=== PATIENT | male | born 1975 | race Two or more races ===

== ENCOUNTER → 2017-01-27 | Outpatient (CLI) | payer BC ==
--- NOTE | 2017-01-27 20:41 | CONS ---
DATE OF CONSULTATION: DATE: CONSULTATION/NEW PATIENT EVALUATION HISTORY OF PRESENT ILLNESS/SLEEP-WAKE EVALUATION: 41-year-old gentleman who has been evaluated in the sleep center for possible obstructive sleep apnea/hypopnea syndrome and excessive daytime sleepiness. SLEEP SCHEDULE: Patient's usual sleep schedule from 9:00 p.m. to 3:00 a.m. on working days and from around 11:00 p.m. to 9 or 11 a.m. on weekends. FALLING ASLEEP: Usually no problems with falling asleep. He has a TV bedroom. DURING SLEEP: Sleeps on the side position. According to his , the patient has loud snoring and witnessed episodes of stopped breathing during sleep. Positive history of restless legs. Patient wakes up from sleep at least two times with at least one episode of nocturia. No history of hypnagogic hallucinations, sleep paralysis or cataplexy. DURING THE DAY/WAKE STATE: Patient feels sleepy wakes up tired, has problems with concentration and irritability, anxiety. [place] Sleepiness Scale significantly increased to 15. No history of dreams during naps. PAST MEDICAL HISTORY: Positive for acid reflux, back problem. PAST SURGICAL HISTORY: Left knee surgery. MEDICATIONS: Omeprazole. SOCIAL HISTORY: Negative for smoking. Alcohol consumption very rarely. FAMILY HISTORY: Heart problems, thyroid problems, acid reflux. REVIEW OF SYSTEMS: Awakenings from sleep, excessive daytime sleepiness. No fevers. No double vision. No recent chest pain. No shortness of breath. No abdominal pain. No bleeding episodes. No blood in urine. No seizure episodes. PHYSICAL EXAMINATION: GENERAL: A gentleman without distress. VITAL SIGNS: BP 119/79, HR 68, RR 16. Height 5 feet 9-1/2, weight 256. BMI 37.2. Neck 17-1/2 inches in circumference. Temperature 97.1. Oxygen saturation at room air 98%. HEENT: PERRLA, EOMI evaluation of oropharynx showed retrognathia 7 mm, moderately low to normal position of soft palate. NOSE: Restriction of nasal breathing, more on the left side. Possible nasal septum deviation. NECK: Supple. No JVD. Thyroid is not palpable. LUNGS: Clear to percussion and to auscultation. Good air exchange. No wheezing or rhonchi. HEART: S1, S2 regular. No murmurs, gallops or rubs. ABDOMEN: Obese. Soft and nontender. Bowel sounds are present. No organomegaly appreciated. EXTREMITIES: No clubbing or cyanosis. GOVERNMENT SERVICES PROFESSIONAL: Awake, alert, and oriented x3. Cranial nerves 2 to 7 intact. There is no fasciculation or atrophy noted. No focal deficits observed. IMPRESSION: 1. Snoring, witnessed episodes of stopped breathing during sleep, retrognathia, restriction of nasal breathing, sleepiness, obstructive sleep apnea-hypopnea syndrome. 2. [place] Sleepiness Scale significantly increased to 15, dictates necessity to include hypersomnia in differential diagnosis. 3. Obesity. 4. Acid reflux. 5. Back problem. 6. Status post left knee surgery. PLAN: 1. Home sleep apnea test for evaluation of patient's breathing during sleep. 2. CPAP/BiPAP titration if sleep study confirms obstructive sleep apnea-hypopnea syndrome. 3. Preferable position during sleep on the side. 4. No driving if patient feels any sleepiness. Patient is aware of civil and criminal liability for unsafe driving. 5. I will see patient for follow-up visit to explain results of the testing and following plan. Sincerely, Francisco Scott MD, PhD, FAASM. Diplomat of [place] [employer], Sleep Medicine Board by [place] [employer] Divisional Storekeeper of [facility] [place]
== END | disposition home or self-care (01) ==
LOC: SLEEP 15:06
PROVIDERS: ATTEND Internal Medicine
DX: G47.33 Obstructive sleep apnea (adult) (pediatric) (principal); E66.9 Obesity, unspecified; K21.9 Gastro-esophageal reflux disease without esophagitis; Z96.652 Presence of left artificial knee joint
CPT/HCPCS: 99211

== ENCOUNTER → 2017-05-19 | Outpatient (CLI) | payer BC ==
--- NOTE | 2017-05-19 17:22 | PN ---
PROGRESS NOTE 41-year-old gentleman who has been followed in Sleep Center for treatment of obstructive sleep apnea-hypopnea syndrome. Recently patient had a home sleep apnea test and subsequent CPAP titration and I discussed results of sleep studies with patient in details. He recently was started on treatment with CPAP and is he able to use CPAP at night without significant problem remains. He mentioned mild leak from a full-face mask. Otherwise, he is using his CPAP and feels better during the night and during the day. I checked his CPAP unit. Usage is 30 out of 30 nights for more than 4 hours, average 6.7 hours. Pressure is 8 cm of water. Leak is 8 L/minute which is acceptable. Apnea- hypopnea index reading for the last month is 1.3, which is normal range. MEDICATIONS: Vitamin D3 capsule. PHYSICAL EXAM: Patient in no distress. BP 113/67, HR 76, RR 16, weight 263, temp 98.3, oxygen saturation at room air 97%. HEENT: PERRLA, EOMI. Evaluation of oropharynx showed extremely low position of soft palate. NECK: Supple. No JVD. Thyroid is not palpable. LUNGS: Clear to percussion and to auscultation. Good air exchange. No wheezing or rhonchi. HEART: S1, S2 regular. No murmurs, gallops or rubs. ABDOMEN: Obese. Soft and nontender. Bowel sounds are present. No organomegaly appreciated. EXTREMITIES: No cyanosis or clubbing. CLINICAL TRANSFORMATION SPECIALIST: Awake, alert and oriented x3. Cranial nerves II through VII intact. There is no fasciculation or atrophy noted. No focal deficits observed. IMPRESSION: 1. Obstructive sleep apnea-hypopnea syndrome on control with CPAP at 8 cm of water. Patient demonstrated 100% compliance with treatment, benefitting from treatment. 2. Obesity. 3. Acid reflux. 4. Some periodic limb movements during titration. 5. Back problems. 6. Status post left knee surgery. PLAN: 1. Continue treatment with CPAP every night for the whole night. 2. Losing weight. 3. Sleep hygiene with regular time in bed for at least 8 hours. 4. No driving if feeling sleepiness. 5. Clinically, patient does not have any problems with his leg movements at night, so pharmacotherapy at the present time is most probably not necessary for the leg movements. 6. Followup visit in 1 year or earlier if patient has any problems with the previous sleep. Thank you very much for allowing me to participate in management of your patient. Sincerely, Francisco Scott MD, PhD, FAASM Diplomat of [place] [employer], Sleep Medicine Board by [place] [employer] [place] [employer] Condominium Property Manager of [facility] [place] MMALMA / ANGEL: [id number] /
== END | disposition home or self-care (01) ==
LOC: SLEEP 15:00
PROVIDERS: ATTEND Internal Medicine
DX: G47.33 Obstructive sleep apnea (adult) (pediatric) (principal); E66.9 Obesity, unspecified; K21.9 Gastro-esophageal reflux disease without esophagitis; G47.61 Periodic limb movement disorder; Z96.652 Presence of left artificial knee joint

== ENCOUNTER 2020-07-10 06:09 | Emergency (ER) | payer BC ==
[2020-07-10 06:16] VITALS: TEMP 98.2
[2020-07-10] MEDS ORDERED: SODIUM CHLORIDE 0.9% 1,000 ML IV ONE ×2 (06:49→08:26)
[2020-07-10] MEDS ORDERED: SODIUM CHLORIDE 0.9% 1,000 ML IV SCH (07:00)
--- NOTE | 2020-07-10 07:16 | ED ---
Nausea/Vomiting/Diarrhea HPI - General Chief complaint: Nausea/Vomiting/Diarrhea Stated complaint: congestion,abd pain Time Seen by Provider: 07/10/20 06:17 Source: patient, family Mode of arrival: ambulatory Limitations: no limitations - History of Present Illness Initial comments: 44-year-old male who denies any PMH when asked presenting today for chief complaint of worsening left lower quadrant pain. Patient states that he has not been ill to eat much or had a bowel movement since Tuesday. Patient states she has had left lower quadrant pain he states he saw his primary care provider this week and was prescribed ciprofloxacin and Flagyl for suspected diverticulitis. Patient denies any bloody stools diarrhea. endorses nausea/vomiting. Patient denies upper abdominal pain chest pain shortness of breath he denies fevers or upper respiratory symptoms. Upon arrival patient appears nontoxic in no acute distress. - Related Data Home Medications Medication Instructions Recorded Confirmed Ciprofloxacin HCl [Cipro] 500 mg PO BID 07/10/20 07/10/20 Ondansetron Odt [Zofran Odt] 8 mg PO BID PRN 07/10/20 07/10/20 metroNIDAZOLE [Flagyl] 500 mg PO TID 07/10/20 07/10/20 Previous Rx's Medication Instructions Recorded Ondansetron Odt [Zofran Odt] 4 mg PO Q8HR PRN 3 Days #9 tab 07/10/20 Allergies Allergy/AdvReac Type Severity Reaction Status Date / Time No Known Allergies Allergy Verified 07/10/20 09:09 Review of Systems ROS Statement: Those systems with pertinent positive or pertinent negative responses have been documented in the HPI. ROS Other: All systems not noted in ROS Statement are negative. Past Medical History Past Medical History: No Reported History History of Any Multi-Drug Resistant Organisms: None Reported Past Surgical History: Appendectomy, Orthopedic Surgery Past Psychological History: No Psychological Hx Reported Smoking Status: Never smoker Past Alcohol Use History: Occasional Past Drug Use History: None Reported General Exam - General Exam Comments Initial Comments: General: The patient is awake and alert, in no distress Eye: +3 mm pupils are equal, round and reactive to light, extra-ocular movements are intact. No nystagmus. There is normal conjunctiva bilaterally. No signs of icterus. Ears, nose, mouth and throat: There are moist mucous membranes and no oral lesions. Neck: The neck is supple, there is no tenderness or JVD. Cardiovascular: There is a regular rate and rhythm. No murmur, rub or gallop is appreciated. Respiratory: Lungs are clear to auscultation, respirations are non-labored, breath sounds are equal. No wheezes, stridor, rales, or rhonchi. Gastrointestinal: Soft, non-distended, localized LLQ pain to palpation, abdomen without masses or organomegaly noted. There is no rebound or guarding present. Musculoskeletal: Normal ROM, no tenderness. Strength 5/5. Sensation intact. Radial pulses equal bilaterally 2+. Neurological: A&O x 3. CN II-XII intact grossly, There are no obvious motor or sensory deficits. Coordination appears grossly intact. Speech is normal. Skin: Skin is warm and dry and no rashes or lesions are noted. Psychiatric: Cooperative, appropriate mood & affect, normal judgment. Limitations: no limitations Course Vital Signs 07/10/20 07/10/20 07/10/20 06:12 08:00 09:00 Temperature 98.2 F Pulse Rate 81 71 69 Respiratory 20 16 16 Rate Blood Pressure 152/96 143/93 142/92 O2 Sat by Pulse 98 Oximetry - Reevaluation(s) Reevaluation #1: 07/10/[address] Wheat-pt denies pain, controlled with one IV dose. Reevaluation #2: 07/10/20 Dr Naranjo consulted urologist-recommended fluids, repeat CMP if creatinine decreasing and pain controlled recommended d/c if creatinine increasing recommends admission Reevaluation #3: cr and gfr improved with fluids. discussed labs wiht dr wheat who is agreeable to discharge with symptomatic treatment outpatient and close urology f/u. pt aware of importance of f/u and is to call today to schedule an appointment. 07/10/20 10:27 Medical Decision Making - Medical Decision Making 44yo male presenting today for cc of LLQ pain since Tuesday. Taken total of 3 doses of Flagyll and Ciprofloxacin. Patient CT revealed stone. Creatinine increased, urology consulted. recommend fluids recheck and dc if there is a decrease in creatinine after hydration. patient creatinine improved, given zofran outpatient discussed importance of increasing oral intake and following up this week. patietn discharged appearing well agreeable to care plan return parameters. - Lab Data Result diagrams: 07/10/20 07:09 07/10/20 09:35 Lab Results 07/10/20 07/10/20 07/10/20 Range/Units 07:09 07:09 07:09 WBC 7.4 (3.8-10.6) k/uL RBC 5.08 (4.30-5.90) m/uL Hgb 15.7 (13.0-17.5) gm/dL Hct 44.8 (39.0-53.0) % MCV 88.1 (80.0-100.0) fL MCH 30.9 (25.0-35.0) pg MCHC 35.1 (31.0-37.0) g/dL RDW 12.4 (11.5-15.5) % Plt Count 182 (150-450) k/uL MPV 7.4 Neutrophils % 69 % Lymphocytes % 19 % Monocytes % 9 % Eosinophils % 1 % Basophils % 1 % Neutrophils # 5.1 (1.3-7.7) k/uL Lymphocytes # 1.4 (1.0-4.8) k/uL Monocytes # 0.7 (0-1.0) k/uL Eosinophils # 0.1 (0-0.7) k/uL Basophils # 0.0 (0-0.2) k/uL Sodium 135 L (137-145) mmol/L Potassium 4.0 (3.5-5.1) mmol/L Chloride 100 (98-107) mmol/L Carbon Dioxide 27 (22-30) mmol/L Anion Gap 8 mmol/L BUN 19 (9-20) mg/dL Creatinine 2.27 H (0.66-1.25) mg/dL Est GFR (CKD-EPI)AfAm 39 (>60 ml/min/1.73 sqM) Est GFR (CKD-EPI)NonAf 34 (>60 ml/min/1.73 sqM) Glucose 120 H (74-99) mg/dL Plasma Lactic Acid Ru (0.7-2.0) mmol/L Calcium 9.1 (8.4-10.2) mg/dL Total Bilirubin 1.9 H (0.2-1.3) mg/dL AST 36 (17-59) U/L ALT 30 (4-49) U/L Alkaline Phosphatase 43 (38-126) U/L Total Protein 7.3 (6.3-8.2) g/dL Albumin 4.3 (3.5-5.0) g/dL Amylase 41 (30-110) U/L Lipase 44 (23-300) U/L Urine Color Yellow Urine Appearance Clear (Clear) Urine pH 5.5 (5.0-8.0) Ur Specific [place] 1.029 (1.001-1.035) Urine Protein Trace H (Negative) Urine Glucose (UA) Negative (Negative) Urine Ketones 1+ H (Negative) Urine Blood Negative (Negative) Urine Nitrite Negative (Negative) Urine Bilirubin Negative (Negative) Urine Urobilinogen <2.0 (<2.0) mg/dL Ur Leukocyte Esterase Trace H (Negative) Urine RBC <1 (0-5) /hpf Urine WBC 1 (0-5) /hpf Ur Squamous Epith Cells <1 (0-4) /hpf Hyaline Casts 1 (0-2) /lpf Urine Mucus Rare H (None) /hpf 07/10/20 07/10/20 Range/Units 07:09 09:35 WBC (3.8-10.6) k/uL RBC (4.30-5.90) m/uL Hgb (13.0-17.5) gm/dL Hct (39.0-53.0) % MCV (80.0-100.0) fL MCH (25.0-35.0) pg MCHC (31.0-37.0) g/dL RDW (11.5-15.5) % Plt Count (150-450) k/uL MPV Neutrophils % % Lymphocytes % % Monocytes % % Eosinophils % % Basophils % % Neutrophils # (1.3-7.7) k/uL Lymphocytes # (1.0-4.8) k/uL Monocytes # (0-1.0) k/uL Eosinophils # (0-0.7) k/uL Basophils # (0-0.2) k/uL Sodium 135 L (137-145) mmol/L Potassium 4.1 (3.5-5.1) mmol/L Chloride 102 (98-107) mmol/L Carbon Dioxide 24 (22-30) mmol/L Anion Gap 9 mmol/L BUN 17 (9-20) mg/dL Creatinine 2.05 H (0.66-1.25) mg/dL Est GFR (CKD-EPI)AfAm 45 (>60 ml/min/1.73 sqM) Est GFR (CKD-EPI)NonAf 39 (>60 ml/min/1.73 sqM) Glucose 114 H (74-99) mg/dL Plasma Lactic Acid Ru 1.2 (0.7-2.0) mmol/L Calcium 8.6 (8.4-10.2) mg/dL Total Bilirubin 1.6 H (0.2-1.3) mg/dL AST 29 (17-59) U/L ALT 27 (4-49) U/L Alkaline Phosphatase 41 (38-126) U/L Total Protein 6.5 (6.3-8.2) g/dL Albumin 3.7 (3.5-5.0) g/dL Amylase (30-110) U/L Lipase (23-300) U/L Urine Color Urine Appearance (Clear) Urine pH (5.0-8.0) Ur Specific [place] (1.001-1.035) Urine Protein (Negative) Urine Glucose (UA) (Negative) Urine Ketones (Negative) Urine Blood (Negative) Urine Nitrite (Negative) Urine Bilirubin (Negative) Urine Urobilinogen (<2.0) mg/dL Ur Leukocyte Esterase (Negative) Urine RBC (0-5) /hpf Urine WBC (0-5) /hpf Ur Squamous Epith Cells (0-4) /hpf Hyaline Casts (0-2) /lpf Urine Mucus (None) /hpf Disposition Clinical Impression: Urolithiasis, Kidney stones Disposition: HOME SELF-CARE Condition: Good Additional Instructions: Please use medication as discussed. Please follow-up with [facility] in the next 2 days. CALL TO SCHEDULE APPOINTMENT FOR THIS WEEK TODAY--THIS IS IMPORTANT Please return to emergency room if the symptoms increase or worsen or for any other concerns. Prescriptions: Ondansetron Odt [Zofran Odt] 4 mg PO Q8HR PRN 3 Days #9 tab PRN Reason: Nausea Is patient prescribed a controlled substance at d/c from ED?: No Referrals: Marjorie Sanchez DO [Primary Care Provider] - 1-2 days Time of Disposition: 10:19
[2020-07-10 07:24] LABS: Basophils % (A) 1 %; Eosinophils # (A) 0.1 k/uL (0-0.7); Eosinophils % (A) 1 %; HCT 44.8 % (39.0-53.0); HGB 15.7 gm/dL (13.0-17.5); Lymphocytes # (A) 1.4 k/uL (1.0-4.8); Lymphocytes % (A) 19 %; MCH 30.9 pg (25.0-35.0); MCHC 35.1 g/dL (31.0-37.0); MCV 88.1 fL (80.0-100.0); Mean Platelet Volume 7.4; Monocytes # (A) 0.7 k/uL (0-1.0); Monocytes % (A) 9 %; Neutrophils # (A) 5.1 k/uL (1.3-7.7); Neutrophils % (A) 69 %; Platelet Count 182 k/uL (150-450); RBC 5.08 m/uL (4.30-5.90); RDW 12.4 % (11.5-15.5); WBC 7.4 k/uL (3.8-10.6)
[2020-07-10 07:39] LABS: Albumin 4.3 g/dL (3.5-5.0); Calcium 9.1 mg/dL (8.4-10.2); Total Bilirubin 1.9 mg/dL (0.2-1.3); Total Protein 7.3 g/dL (6.3-8.2)
[2020-07-10] MEDS ORDERED: HYDROmorphone 1 MG/ML 1 ML SYRINGE IVP STA (07:40)
[2020-07-10 07:41] LABS: Appearance,Urine Clear (Clear); Bilirubin,Urine Negative (Negative); Blood,Urine Negative (Negative); Color,Urine Yellow; Glucose,Urine (UA) Negative (Negative); Hyaline Casts,Urine 1 /lpf (0-2); Ketones,Urine 1+ (Negative); Leukocyte Esterase,Urine Trace (Negative); Mucus,Urine Rare /hpf; Nitrite,Urine Negative (Negative); PH, Urine 5.5 (5.0-8.0); Protein,Urine Trace (Negative); RBC,Urine <1 /hpf (0-5); Specific Gravity,Urine 1.029 (1.001-1.035); Squamous Epithelial Cell,Urine <1 /hpf (0-4); Urobilinogen,Urine <2.0 mg/dL (<2.0); WBC,Urine 1 /hpf (0-5)
[2020-07-10] MEDS ORDERED: SODIUM CHLORIDE 0.9% 500 ML 500 ML IV ONE (07:42)
[2020-07-10] MEDS ORDERED: HYDROmorphone 1 MG/ML 1 ML SYRINGE IVP PRN (07:47)
--- NOTE | 2020-07-10 07:54 | CT ---
EXAMINATION TYPE: CT abdomen pelvis w con DATE OF EXAM: 07/10/2020 COMPARISON: None HISTORY: LLQ pain, nausea and vomiting CT DLP: 1867.9 mGycm Automated exposure control for dose reduction was used. TECHNIQUE: Helical acquisition of images from the lung bases through the pelvis have been completed. CONTRAST: Performed without Oral Contrast and with IV Contrast, patient injected with 100 mL of Isovue 300. FINDINGS: Umbilical hernia contains fat. LUNG BASES: No significant abnormality is appreciated. AORTA: No significant abnormality is appreciated. LIVER/GB: Liver shows low attenuation consistent with hepatic steatosis. Gallbladder is within normal limits. PANCREAS: No significant abnormality is seen. SPLEEN: No significant abnormality is seen. ADRENALS: No significant abnormality is seen. KIDNEYS: There is left-sided hydronephrosis and decreased nephrogram. Nonobstructive calculus is pres ent at the lower pole measuring 6 mm. There is associated hydroureter. At the level of the distal lef t ureter there is calcification present measuring 4 mm. Right kidney shows a punctate right upper cielo e nonobstructive calculus. REPRODUCTIVE ORGANS: No significant abnormality is seen BOWEL: No significant abnormality is seen. FREE AIR: No Free Air visible. ASCITES: None visible. PELVIC ADENOPATHY: None visualized. RETROPERITONEAL ADENOPATHY: No Retroperitoneal Adenopathy visible. URINARY BLADDER: No significant abnormality is seen. OSSEOUS STRUCTURES: No significant abnormality is seen. IMPRESSION: OBSTRUCTIVE DISTAL LEFT URETERAL CALCULUS. BILATERAL NEPHROLITHIASIS. HEPATIC STEATOSIS.
[2020-07-10 09:15] VITALS: RESP 16
[2020-07-10 10:12] LABS: Albumin 3.7 g/dL (3.5-5.0); Calcium 8.6 mg/dL (8.4-10.2); Potassium 4.1 mmol/L (3.5-5.1); Total Bilirubin 1.6 mg/dL (0.2-1.3); Total Protein 6.5 g/dL (6.3-8.2)
[2020-07-10] MEDS ORDERED: ACET/COD 300 MG/30 MG STARTER PACK 6 TAB BTL PO STA (10:26)
[2020-07-10 10:47] VITALS: BP 125/75; PULSE 74
== END 2020-07-10 10:57 | disposition home or self-care (01) ==
LOC: EC 06:09
DX: N20.0 Calculus of kidney (principal); Z90.49 Acquired absence of other specified parts of digestive tract
CPT/HCPCS: 36415; 80053; 82150; 83605; 83690; 85025; 81001; 74177; 99284; 96360; 96361 ×2; Q9967